=== PATIENT | female | born 1980 | race Caucasian/White ===

== ENCOUNTER 2024-04-23 07:50 | Day surgery (SDC) | payer MEDICAID ==
[2024-04-23] MEDS ORDERED: Propofol 200 MG/20 ML SDV ONE (08:36)
[2024-04-23] MEDS ORDERED: fentaNYL 100 MCG/2 ML SDV ONE (08:37)
[2024-04-23] MEDS ORDERED: Midazolam 1 MG/ML 2 ML SDV ONE (08:37)
[2024-04-23] MEDS: Lactated Ringers 1,000 ML IV SCH (08:39)
== END 2024-04-23 10:36 | disposition home or self-care (01) ==
LOC: JP.SDS 07:50
PROVIDERS: ATTEND Surgery
DX: R10.13 Epigastric pain (principal); K21.9 Gastro-esophageal reflux disease without esophagitis
CPT/HCPCS: 00731-QZ; 88305; J2250; J2704; J3010; J7120